=== PATIENT | male | born 1955 | race Caucasian/White ===

== ENCOUNTER 2022-10-20 01:28 | Inpatient (IN) | payer OTHER ==
[~2022-10-20] VITALS: Ht 172.7 cm; Wt 81.6 kg
[2022-10-20] VITALS (21 sets, daily range): BP systolic 68–132; BP diastolic 49–80; TEMP 97–99; O2SAT 96–100
--- NOTE | 2022-10-20 02:00 | NUR ---
[id number] FROM [facility] C/O ABD PAIN, HYPOTENSIVE, AND BLOOD IN STOOL.
--- NOTE | 2022-10-20 02:10 | NUR ---
RAC #20G S/L BLOOD COLLECTED AND SENT TO LAB
--- NOTE | 2022-10-20 02:18 | NUR ---
DR ELIS RATLIFF AT PT'S BEDSIDE FOR RECTAL EXAM
[2022-10-20] MEDS ORDERED: IV NS 0.9% 1,000 ML BAG IV ONE (02:30)
[2022-10-20] MEDS ORDERED: PANTOPRAZOLE 80 MG in IV NS 0.9% 100 ML IV ONE (02:30)
[2022-10-20] MEDS ORDERED: PANTOPRAZOLE 40 MG VIAL ONE (02:35)
[2022-10-20 03:02] LABS: BASOPHILS # (AUTO) 0.1 K/uL (0.0-0.2); BASOPHILS % (AUTO) 0.8 % (0.0-2.0); HEMATOCRIT 25 % (39-51); HEMOGLOBIN 8.3 g/dL (13.5-17.5); LYMPHOCYTES # (AUTO) 3.2 K/uL (0.8-4.8); LYMPHOCYTES % (AUTO) 20.1 % (20.0-44.0); MEAN CORPUSCULAR HGB CONC 33 g/dl (31.0-36.0); MEAN CORPUSCULAR VOLUME 93 fL (80-96); MONOCYTES # (AUTO) 1.1 K/uL (0.1-1.30); MONOCYTES % (AUTO) 7.2 % (2.0-12.0); NEUTROPHILS # (AUTO) 10.9 K/uL (1.8-8.9); NEUTROPHILS % (AUTO) 68.9 % (43.0-81.0); PLATELET COUNT (AUTO) 476 K/uL (150-450); RED BLOOD CELL COUNT(AUTO) 2.74 MIL/uL (4.5-6.0); WHITE BLOOD COUNT (AUTO) 15.8 K/uL (4.3-11.0)
[2022-10-20] MEDS ORDERED: IV NS 0.9% 250 ML IV ONE (03:16)
[2022-10-20] MEDS ORDERED: CT SWABBABLE VALVE TRANS SET 1 EA INFUS.SET MC ONE (03:16)
[2022-10-20] MEDS ORDERED: IOHEXOL-350 100 ML VIAL IV ONE (03:16)
--- NOTE | 2022-10-20 03:21 | NUR ---
TRAVELER CHANGER AT BEDSIDEM DRAWING BLOOD
[2022-10-20 03:25] LABS: CALCIUM, SERUM 9.5 mg/dL (8.5-10.1); CARBON DIOXIDE 27 mmol/L (21-32); CHLORIDE 99 mmol/L (98-107); CREATININE 1.2 mg/dL (0.6-1.3); GLUCOSE 216 mg/dL (74-106); POTASSIUM 4.6 mmol/L (3.5-5.1); SODIUM SERUM 135 mmol/L (136-145); UREA NITROGEN, BLOOD 28 mg/dL (7-18)
[2022-10-20 03:38] LABS: ALANINE AMINOTRANSFERASE 32 U/L (12-78); ALBUMIN 2.6 g/dL (3.4-5.0); ALKALINE PHOSPHATASE 80 U/L (46-116); ASPARTATE AMINOTRANSFERASE 30 U/L (15-37); BILIRUBIN,DIRECT 0.1 mg/dL (0.0-0.2); BILIRUBIN,TOTAL 0.4 mg/dL (0.2-1.0); LIPASE 235 U/L (73-393); TOTAL PROTEIN, SERUM 7.6 g/dL (6.4-8.2)
--- NOTE | 2022-10-20 03:47 | NUR ---
PT TAKEN TO CT VIA DANIEL
--- NOTE | 2022-10-20 03:57 | NUR ---
REQUESTED INFORMATION ABOUT MEDICATION LAST TAKEN. CALLED [facility] NO ANSWER.
--- NOTE | 2022-10-20 04:02 | NUR ---
PT RETURNED TO ER BED [address]
--- NOTE | 2022-10-20 04:06 | NUR ---
COVID SWAB TAKEN AND SENT TO LAB
[2022-10-20] MEDS ORDERED: ZINC220T3 PO (04:20)
[2022-10-20] MEDS ORDERED: L. A1TAB10 PO (04:20)
[2022-10-20] MEDS ORDERED: LINA5TAB PO (04:20)
[2022-10-20] MEDS ORDERED: ASPI-1169 PO (04:20)
[2022-10-20] MEDS ORDERED: ASCO500T21 PO (04:20)
[2022-10-20] MEDS ORDERED: CYAN-51 PO (04:20)
[2022-10-20] MEDS ORDERED: OMEG1CAP40 PO (04:20)
[2022-10-20] MEDS ORDERED: SENN-261 PO (04:20)
[2022-10-20] MEDS ORDERED: MULT-594 PO (04:20)
[2022-10-20] MEDS ORDERED: DOCU100C36 PO (04:20)
[2022-10-20] MEDS ORDERED: ATOR20TA PO (04:20)
[2022-10-20] MEDS ORDERED: APIX5TAB PO (04:20)
[2022-10-20] MEDS ORDERED: CEFEPIME 1 GM in IV D5W 50 ML IV ONE (05:30)
[2022-10-20] MEDS ORDERED: VANCOMYCIN 1 GM in IV D5W 250 ML IV ONE (05:30)
[2022-10-20] MEDS ORDERED: CEFEPIME 1 GM VIAL ONE (05:32)
--- NOTE | 2022-10-20 05:41 | NUR ---
DR. GILL PAGED, LESS A MESSAGE. AWAITING CALLBACK.
--- NOTE | 2022-10-20 05:57 | NUR ---
TELE 117-1
[2022-10-20] MEDS ORDERED: MORPHINE SULFATE INJ 2 MG/ML DISP.SYRIN IV PRN (06:00)
[2022-10-20] MEDS ORDERED: ACETAMINOPHEN 325 MG TABLET PO PRN (06:00)
[2022-10-20] MEDS ORDERED: IV NS 0.9% 1,000 ML IV SCH (06:00)
[2022-10-20] MEDS ORDERED: ONDANSETRON HCL/PF 4 MG/2 ML VIAL IVP PRN (06:00)
[2022-10-20] MEDS ORDERED: VANCOMYCIN 1 GM /D5W 250 ML PB IV ONE (06:07)
[2022-10-20 06:35] LABS: HEMOGLOBIN 7.4 g/dL (13.5-17.5)
--- NOTE | 2022-10-20 06:36 | NUR ---
CALLED [facility] FOR REPORT. WAS TOLD NO NURSES AVAILABLE, CALL BACK AFTER SHIFT CHANGE.
--- NOTE | 2022-10-20 06:40 | NUR ---
DR GILLIS ON PHONECALL WITH DR KAMLESH MONTEZ
--- NOTE | 2022-10-20 06:51 | NUR ---
REPORT GIVEN TO DARREN QUINTANA, CHARGE NURSE ON FIRST FLOOR
[2022-10-20] MEDS ORDERED: PIPERACILLIN /TAZOBACTAM 3.375 G in IV D5W 100 ML IV SCH (07:00)
[2022-10-20] MEDS ORDERED: PEG 3350/NA SULF,BICARB,CL/KCL 4,000 ML BOTTLE PO ONE ×2 (07:00→17:00)
--- NOTE | 2022-10-20 07:05 | NUR ---
PATIENT NOTED WITH BURGUNDY-COLORED, PASTY STOOL. SEMAJ CARE PROVIDED. NO OPEN AREAS NOTED IN SACRAL-COCCYX AREA OR BUTTOCKS. S/P SURGICAL LESIONS TO RIGHT UPPER LEG COVERED WITH DRY DRESSING.
--- NOTE | 2022-10-20 07:05 | NUR ---
PATIENT ADMITTED FROM ER WITH DX:GI BLEED. TO ROOM 117/1 [facility]. PATIENT ACCOMPANIED BY ER STAFF WITH IV ON RIGHT AC RUNNING ABX ORDERED. IV SITE PATENT NO S/S OF COMPLICATIONS. IV ON LEFT AC SALINE LOCKED G20, PATENT. PATIENT IS PALE, SKIN IS WARM AND DRY. UNLABORED BREATHING AT ROOM AIR SATING 100%. NOTED WITH BLOOD BLOOD CLOTS COMING FROM RECTUM. NPO. CLEAN WOUND DRESSINGS ON BLE. V/S BP 93/68, HR 100, R 18 T97.0 100% 02 SATURATION AT ROOM AIR. KEPT CLEAN AND COMFORTABLE. BILATERAL HALF SIDE RAILS UP X2. CALL LIGHT IN REACH.
--- NOTE | 2022-10-20 07:10 | NUR ---
PT TRANSPORTED TO [facility] VIA ACLS PROTOCOL
--- NOTE | 2022-10-20 07:58 | NUR ---
PATIENT IS AWAKE, ALERT X3. PALE UNLABORED BREATHING AT ROOM AIR. PALE IN COLOR. BASIN CLEANER INFORMED. C/O FEELING PASSING OUT. V/S 68/49 HR 90 T 97.7. R 20 100% 02 SAT AT ROOM AIR.
--- NOTE | 2022-10-20 07:59 | NUR ---
RAPID RESPONSE CALLED.
--- NOTE | 2022-10-20 08:00 | NUR ---
per dr. benítez not aware of pt. need to call [facility] for orders.
--- NOTE | 2022-10-20 08:00 | NUR ---
lary hinkle notified regarding pt. bloody stool and decrease bp,new orders given AND CARRIED OUT,aware pt. is regal he will update dr. benítez.
--- NOTE | 2022-10-20 08:06 | NUR ---
dr. navas also notified regarding pt. bleeding and being transferred to icu r/t unstable vs.
--- NOTE | 2022-10-20 08:15 | NUR ---
RECEIVED PATIENT IN ICU. ON ROOM AIR WITH SATURATION AT 100%. SINUS RHYTHM ON MONITOR AT THIS TIME. SYSTOLIC BP GREATER THAN 90. 1 LITER OF NORMAL SALINE BOLUSING, I LITER PENDING. CLEANED ONE TIME, COPIOUS RED STOOL NOTED. IV ACCESS ON RIGHT ANTECUBITAL 20 GAUGE AND LEFT ANTECUBITAL 20 GAUGE, BOTH ACCESS' FLUSHING WITHOUT RESISTANCE. NPO AT THIS TIME DUE TO GI BLEED. WOUNDS PHOTOGRAPHED. SAFETY MEASURES IMPLEMENTED, WILL CONTINUE PLAN OF CARE AND ANTICIPATE NEEDS.
[2022-10-20] MEDS ORDERED: IV NS 0.9% 1,000 ML IV ONE (08:30)
--- NOTE | 2022-10-20 08:45 | NUR ---
OWENS CATHETER INSERTED. YELLOW CLEAR OUTPUT NOTED
[2022-10-20] MEDS ORDERED: DEXTROSE 50%-WATER 50 ML DISP.SYRIN IV PRN (09:00)
[2022-10-20] MEDS: ASCORBIC ACID 500 MG TABLET PO SCH (09:00)
--- NOTE | 2022-10-20 09:16 | NUR ---
RECIEVED VERBAL ORDER FROM DOCTOR JUVENTINO: ORDER LEVOPHED FOR HYPOTENSION ORDER INSERTION OF PICC LINE. NURSING PETROLOGY TEACHER NOTIFIED. ORDERS PLACED, WILL CARRY OUT.
[2022-10-20] MEDS ORDERED: NOREPINEPHRINE 8 MG in IV NS 0.9% 242 ML IV PRN (09:30)
[2022-10-20] MEDS: PANTOPRAZOLE 40 MG VIAL IV SCH ×2 (10:24→17:17)
[2022-10-20] MEDS: IV NS 0.9% 250 ML IV PRN (12:58)
[2022-10-20] MEDS: PIPERACILLIN /TAZOBACTAM 3.375 G in IV D5W 100 ML IV SCH ×2 (12:58→20:31)
[2022-10-20] MEDS: BLOOD SUGAR DIAGNOSTIC 1 EACH STRIP IN SCH ×2 (12:58→17:17)
[2022-10-20 14:10] LABS: HEMOGLOBIN 5.6 g/dL (13.5-17.5)
--- NOTE | 2022-10-20 14:25 | NUR ---
BLOOD TRANSFUSION STARTED. INTIATED AT RATE OF 75 MLS/HR. WILL INCREASE RATE OF INFUSION PATIENT TOLERATES. PRE TRANS FUSION VITALS LOGGED IN TRANSFUSION MENU UNDER 1415 TIME.
--- NOTE | 2022-10-20 14:40 | NUR ---
PATIENT TOLERATING TRANSFUSION WELL. INCREASED RATE TO 130 MLS/HR. WILL CONTINUE TO ASSESS AND MAKE ADJUSTMENTS NECESSARY.
[2022-10-20] MEDS: IV NS 0.9% 1,000 ML IV PRN ×2 (15:13→23:49)
--- NOTE | 2022-10-20 17:30 | NUR ---
UNABLE TO ACCESS TRANSFUSION MENU. BLOOD TRANSFUSION CONCLUDED. POST TRANSFUSION VITALS ARE FOLLOWS TEMP-98.7 DEGREES FAHRENHEIT PULSE 78 RESPIRATORY RATE 18 SPO2 98% BP- 113/71 PAIN-0/10. INFUSED INTO RIGHT UPPER ARM PICC LINE. DISCONTINUED Y-TUBING, LINE FLUSHED. WILL CONTINUE PLAN OF CARE AND ANTICIPATE NEEDS.
--- NOTE | 2022-10-20 19:30 | NUR ---
PATIENT HAD LARGE BLOODY BOWEL MOVEMENT. CLEANED WITH NIGHTSHIFT RN. WILL ORDER STAT HEMOGRAM TO ASSESS BLOOD LOSS. CARE ENDORSED TO ALE FOR CONTINUATION OF CARE.
--- NOTE | 2022-10-20 21:00 | NUR ---
Received latest Hgb 7.5 (from 5.6),Hct 23 (from 17) post 1u PRBC transfusion in AM. No blood from stool noted at this time, stool liquid, light brown in color. Notified COMMUNICATION CONSULTANT Gee BRADFORD at this time.
[2022-10-20 21:37] LABS: HEMATOCRIT 23 % (39-51); HEMOGLOBIN 7.5 g/dL (13.5-17.5); MEAN CORPUSCULAR HGB CONC 33 g/dl (31.0-36.0); MEAN CORPUSCULAR VOLUME 88 fL (80-96); PLATELET COUNT (AUTO) 350 K/uL (150-450); RED BLOOD CELL COUNT(AUTO) 2.58 MIL/uL (4.5-6.0); WHITE BLOOD COUNT (AUTO) 13.4 K/uL (4.3-11.0)
[2022-10-20] MEDS: ATORVASTATIN 10 MG TABLET PO SCH (22:00)
[2022-10-21] VITALS (36 sets, daily range): BP systolic 84–133; BP diastolic 46–95; TEMP 97.4–99.3; O2SAT 95–100
--- NOTE | 2022-10-21 | NUR ---
Noted pt w/ severe bleeding from rectum, bright red in color, large clots noted. Pt is awake, altered mentation, confused, verbally responsive, however lethargic and pale. Notified FAMILY SERVICES WORKER Gee Cuellar w/ order for stat H/H. VS 84/60, HR 111, RR 20, O2 sat- 98%. Addendum: 10/21/22 at 0303 by ELSI HASKINS RN Approx. 500ml blood loss, bright red in color, with large clots.
--- NOTE | 2022-10-21 00:06 | NUR ---
Stat H/H ordered and communicated.
--- NOTE | 2022-10-21 00:20 | NUR ---
Received H/H result. Hgb 5.9, Hct, 18. Notified HEALTH AID Gee Cuellar w/ order to transfuse 2units PRBC stat.
--- NOTE | 2022-10-21 00:30 | NUR ---
Blood bank aware of stat 2u PRBC order. Awaiting for blood to be ready.
[2022-10-21] MEDS: INSULIN REGULAR, HUMAN 100 UNIT/ML 3 ML VIAL SQ PRN ×3 (00:33→23:52)
[2022-10-21 00:35] LABS: HEMOGLOBIN 5.9 g/dL (13.5-17.5)
[2022-10-21] MEDS: BLOOD SUGAR DIAGNOSTIC 1 EACH STRIP IN SCH ×5 (00:40→23:51)
--- NOTE | 2022-10-21 01:16 | NUR ---
ICU/RN NOTE Blood transfusion 1PRBC started at this time. Pt awake, verbally responsive, noted with altered mental status, confusion. Will cont to monitor pt. VS BP- 88/57, HR 111, RR 22, O2 SAT 99%, T- 98.1. Addendum: 10/21/22 at 0151 by ELSI HASKINS RN SEE NOTE ABOVE
--- NOTE | 2022-10-21 01:17 | NUR ---
Blood transfusion 1u PRBC started at this time. Pt awake, verbally responsive, noted with altered mental status, confusion. Will cont to monitor pt. VS BP- 88/57, HR 111, RR 22, O2 SAT 99%, T- 98.1.
--- NOTE | 2022-10-21 01:36 | NUR ---
1u PRBC transfusing, no transfusion reaction noted. Pt remains awake, verbally responsive, lethargic. VS- BP 94/46, HR- 96, RR- 13, O2 sat- 98%, T- 98.3
--- NOTE | 2022-10-21 02:16 | NUR ---
1st 1unit PRBC transfused. No transfusion reaction noted. Afebile. Pt noted w/ improved mental status, alert, and verbally responsive. Still noted w/ active bleeding from rectum. will transfuse second unit of PRBC. VS: BP- 103/61, HR- 91, RR-20, O2 SAT- 98%, T- 98.7
--- NOTE | 2022-10-21 02:35 | NUR ---
2nd unit PRBC started at this time. BP- 95/59, HR- 86, RR- 19, O2 SAT-99%, T- 98.3 orally
--- NOTE | 2022-10-21 02:50 | NUR ---
PRBC currently transfusing, no transfusion reaction noted. Pt remains awake, verbally responsive, lethargic. VS: BP- 101/66, HR-86, RR- 19, O2 SAT- 99%, T-97.8
[2022-10-21] MEDS: PIPERACILLIN /TAZOBACTAM 3.375 G in IV D5W 100 ML IV SCH ×3 (04:08→21:28)
--- NOTE | 2022-10-21 04:15 | NUR ---
2nd unit PRBC transfusion completed. No transfusion reaction noted. Pt back to baseline mental status, alert, awake, oriented x3. Denies pain or discomfort at this time. Afebrile. VS: BP- 104/64, HR- 79, RR- 18, O2 SAT- 100%, T- 98.8
[2022-10-21 05:27] LABS: BASOPHILS # (AUTO) 0.1 K/uL (0.0-0.2); BASOPHILS % (AUTO) 0.5 % (0.0-2.0); EOSINOPHILS % (AUTO) 0.8 % (0.0-6.0); HEMATOCRIT 23 % (39-51); HEMOGLOBIN 7.7 g/dL (13.5-17.5); LYMPHOCYTES # (AUTO) 1.7 K/uL (0.8-4.8); LYMPHOCYTES % (AUTO) 13.3 % (20.0-44.0); MEAN CORPUSCULAR HGB CONC 34 g/dl (31.0-36.0); MEAN CORPUSCULAR VOLUME 88 fL (80-96); MONOCYTES # (AUTO) 0.8 K/uL (0.1-1.30); MONOCYTES % (AUTO) 6.1 % (2.0-12.0); NEUTROPHILS # (AUTO) 10.1 K/uL (1.8-8.9); NEUTROPHILS % (AUTO) 79.3 % (43.0-81.0); PLATELET COUNT (AUTO) 218 K/uL (150-450); RED BLOOD CELL COUNT(AUTO) 2.58 MIL/uL (4.5-6.0); WHITE BLOOD COUNT (AUTO) 12.8 K/uL (4.3-11.0)
[2022-10-21 05:57] LABS: ALBUMIN 1.8 g/dL (3.4-5.0); BILIRUBIN,TOTAL 0.8 mg/dL (0.2-1.0); CALCIUM, SERUM 7.5 mg/dL (8.5-10.1); MAGNESIUM 1.8 mg/dL (1.8-2.4); POTASSIUM 4.6 mmol/L (3.5-5.1); TOTAL PROTEIN, SERUM 4.9 g/dL (6.4-8.2)
--- NOTE | 2022-10-21 07:02 | NUR ---
WOUND CARE CONSULT: PT PRESENTS WITH SACRAL SCARRING AND INCONTINENCE ASSOCIATED SKIN IRRITATION TO PERIANAL AREA WELL LOWER EXTREMITY WOUNDS AND CLOSED INCISIONS TO RT THIGH AND LOWER LEG, ALL PRESENT ON ADMISSION. DR FRAGOSO TO BE CALLED THIS AM FOR DPM CONSULT. RECOMMEND VASCULAR SURGERY FOLLOW UP WELL. DISCUSSED SKIN PROTECTION WITH NURSING STAFF. OWENS CATHETER NOTED. MD IN AGREEMENT WITH PLAN OF CARE.
--- NOTE | 2022-10-21 07:30 | NUR ---
Report given to AM shift for continuity of care. Pt in stable condition.
--- NOTE | 2022-10-21 07:30 | NUR ---
PRIZE JACKER NOTE Patient is resting in bed without active complaint. residential monitor showed SR HR 78/min. SpO2 100% with 2L oxygen via NC. No respiratory distress noted. GCS [id number], bilateral pupils 3mm PEARLA. BP 107/53mmHg. Zaabla is in-situ, collecting yellowish and clear urine. Patient has been fasted since 10/20/22. All the surgery consent is checked and surgical sites are checked and marked. Await procedures now.
[2022-10-21] MEDS: ASCORBIC ACID 500 MG TABLET PO SCH (08:36)
[2022-10-21] MEDS: Z GUARD REMEDY 4 OZ OINT TP SCH (08:36)
[2022-10-21] MEDS: PANTOPRAZOLE 40 MG VIAL IV SCH ×2 (08:36→17:21)
[2022-10-21] MEDS ORDERED: IOHEXOL 50 ML IV ONE (09:26)
[2022-10-21] MEDS ORDERED: LIDOCAINE 1% INJ 50 ML MDV IJ ONE (09:27)
--- NOTE | 2022-10-21 11:14 | NUR ---
BUSINESS TEAM LEADER NOTE Patient returned to the unit after left groin IVC filter placement is done under MAC. Patient is alert and awake, without active complaints for now. security monitor showed SR HR 70s/min. BP 104/63mmHg, SpO2 100% RA. Keep patient fasting for EGD and CLN at 13:00.
[2022-10-21] MEDS ORDERED: ANESTHESIA TRAY IN PYXIS 1 EA TRAY MC ONE (12:30)
[2022-10-21] MEDS: IV NS 0.9% 1,000 ML IV PRN (12:54)
[2022-10-21] MEDS: IV NS 0.9% 250 ML IV PRN (12:59)
[2022-10-21] MEDS ORDERED: FENTANYL PF 100MCG/2ML AMPUL ONE (14:13)
[2022-10-21 14:29] LABS: HEMOGLOBIN 7.4 g/dL (13.5-17.5)
--- NOTE | 2022-10-21 14:44 | NUR ---
TELEPHONE CLERK TELEGRAPH OFFICE NOTE Patient complained testicular pain after left IVC placement. Noted that the scrotum appeared red, very tender upon touch. Did not notice any irregularity over the area and enlargement. Informed. DAVID Echeverria, who ordered US scrotum. Await investigation.
[2022-10-21] MEDS ORDERED: PROTEIN LIQUID PO (16:14)
[2022-10-21] MEDS ORDERED: NA P133E RC (16:14)
[2022-10-21] MEDS ORDERED: BISA10SU11 RC (16:14)
[2022-10-21] MEDS ORDERED: MAGN400O6 PO (16:14)
[2022-10-21] MEDS ORDERED: DERMAFUNGAL TP (16:14)
[2022-10-21] MEDS ORDERED: HYDR-4303 PO (16:14)
[2022-10-21] MEDS ORDERED: POVI3780 TP (16:14)
[2022-10-21] MEDS ORDERED: TIZA-180 PO (16:14)
[2022-10-21] MEDS ORDERED: ACET-868 PO ×2 (16:14)
[2022-10-21] MEDS ORDERED: NORM210S TP (16:14)
[2022-10-21] MEDS: ANCEF 1 GM/50 ML D5W IV SCH ×2 (17:23)
--- NOTE | 2022-10-21 20:40 | NUR ---
HAY BUCKLER NOTES: RECEIVED REPORT FROM RECOVERY NURSE MAC URBAN. PT IS AWAKE, ALERT/ORIENTED X4 AND VERBALLY RESPONSIVE. O2 AT 2L/MIN VIA N/C AND PT TOLERATED WELL. O2 SAT 100%. IV ACCESS ON JORGE PICC AND RAC#20G INTACT AND PATENT. NO S/S OF INFILTRATIONS. DR. PHILLIPS- CLEAR LIQUID DIET. NOTED AND CARRIED OUT. GAVE PT ICE AND PT WAS ABLE TO SWALLOW. NO C/O NAUSEA/VOMITING. NO C/O PAIN OR DISCOMFORT. PT HAD EGD AND COLOSCOPY. FINDING WERE GASTRITIS, RECTAL ULCER AND VISIBLE VESSEL WITH CLIP. NOTED SCANT AMOUNT OF BLEEDING AROUND SACRUM AREA. OWENS CATHETER IN PLACE. DRAINING BY GRAVITY. NO HEMATURIA NOTED. WILL CONTINUE TO MONITOR FOR ANY CHANGES. .
[2022-10-21] MEDS: MUPIROCIN OINT 2% 22 GM TUBE NS SCH (21:29)
[2022-10-21 22:12] LABS: HEMOGLOBIN 6.9 g/dL (13.5-17.5)
[2022-10-21] MEDS: ATORVASTATIN 10 MG TABLET PO SCH (22:14)
--- NOTE | 2022-10-21 22:19 | NUR ---
RN NOTES: RECEIVED CRITICAL LAB RESULT. PT'S HGB/HCT IS 6.9/21. NOTIFIED DR. VILLARREAL. ORDER- 1 UNIT OF PRBC. NOTED AND CARRIED OUT.
--- NOTE | 2022-10-21 23:52 | NUR ---
RN NOTES: BLOOD SUGAR 126. NO COVERAGE NEEDED. NO S/S OF HYPER/HYPOGLYCEMIA. WILL CONTINUE TO MONITOR
[2022-10-22] VITALS (22 sets, daily range): BP systolic 92–119; BP diastolic 52–82; TEMP 97.3–99.1; O2SAT 98–100
--- NOTE | 2022-10-22 00:23 | NUR ---
RN NOTES: 1 UNIT BLOOD TRANSFUSION STARTED. V/S STABLE. PT AFEBRILE. WILL CONTINUE TO MONITOR
--- NOTE | 2022-10-22 00:30 | NUR ---
RN NOTES: AFTER 15 MIN OF BLOOD TRANSFUSION. PT STILL AFEBRILE. V/S STABLE. NO S/S OF ADVERSE REACTIONS. WILL CONTINUE TO MONITOR
[2022-10-22] MEDS: ANCEF 1 GM/50 ML D5W IV SCH ×2 (02:17)
--- NOTE | 2022-10-22 03:20 | NUR ---
RN NOTES: 1 UNIT OF BLOOD TRANSFUSION COMPLETED. V/S STABLE. PT STILL AFEBRILE. NO S/S OF ADVERSE REACTIONS NOTED. PT TOLERATED WELL. WILL CONTINUE TO MONITOR
[2022-10-22 04:39] LABS: HEMOGLOBIN 7.2 g/dL (13.5-17.5)
[2022-10-22] MEDS: PIPERACILLIN /TAZOBACTAM 3.375 G in IV D5W 100 ML IV SCH ×3 (04:50→21:34)
[2022-10-22] MEDS: BLOOD SUGAR DIAGNOSTIC 1 EACH STRIP IN SCH ×3 (05:19→18:08)
[2022-10-22] MEDS: INSULIN REGULAR, HUMAN 100 UNIT/ML 3 ML VIAL SQ PRN ×3 (05:20→18:19)
--- NOTE | 2022-10-22 05:20 | NUR ---
RN NOTES: BLOOD SUGAR 109. NO COVERAGE NEEDED. NO S/S OF HYPER/HYPOGLYCEMIA. WILL CONTINUE TO MONITOR
--- NOTE | 2022-10-22 05:56 | NUR ---
INFORMATION SENT:FACESHEET,24 HRS REPORT,DC PLANNING,PROGRESS NOTES-10/21,IMAGING,CONSULTATION,UR-10/21 INSURANCE NAME:VEENA/ /AUTH# [id number] FAX NO:[phone] PEDRO NAME:RENAE FAX NO:[phone] NO OF PAGES:32 FAX SENT BY:RONEN
[2022-10-22] MEDS: IV NS 0.9% 1,000 ML IV PRN (06:03)
--- NOTE | 2022-10-22 06:35 | NUR ---
SKATE BOARDER CLOSING NOTES: PT IS SLEEPING IN BED AT THIS MOMENT. BUT EASILY AROUSABLE. AWAKE, ALERT/ORIENTED X4 AND VERBALLY RESPONSIVE. O2 AT 2L/MIN VIA N/C AND PT TOLERATED WELL. O2 SAT 100%. IV ACCESS ON JORGE PICC INTACT AND PATENT. NO S/S OF INFILTRATIONS. NO C/O PAIN OR DISCOMFORT. NO ACUTE DISTRESS. OWENS CATHETER IN PLACE. DRAINING BY GRAVITY. NO HEMATURIA NOTED. NOTED CLEAR/YELLOW URINE. ALL SAFETY MEASURES IN PLACE. BED IN LOWEST POSITION AND LOCKED. SIDE RAILS UP X3. PLACE CALL LIGHT WITH IN REACH. ALL DUE MEDS GIVEN ORDERED. WILL ENDORSE TO MORNING SHIFT NURSE.
--- NOTE | 2022-10-22 07:32 | NUR ---
DISTRICT HOME ECONOMICS AGENT NOTE Patient is resting in bed without active complaint. Facial expression is normal. test puller showed SR HR 70/min. BP WML without vasopressors use. SpO2 95% RA without respiratory distress noted. Zabala is in-situ, collecting clear and yellowish urine. Right PICC is in-situ, patent upon NS flush. For clear fluids today. Continue monitoring and care.
[2022-10-22] MEDS: PANTOPRAZOLE 40 MG VIAL IV SCH ×2 (08:31→18:08)
[2022-10-22] MEDS: MUPIROCIN OINT 2% 22 GM TUBE NS SCH ×2 (08:32→21:34)
[2022-10-22] MEDS: ASCORBIC ACID 500 MG TABLET PO SCH (08:32)
[2022-10-22] MEDS: Z GUARD REMEDY 4 OZ OINT TP SCH (08:33)
--- NOTE | 2022-10-22 11:30 | NUR ---
NUCLEAR PLANT INSTRUMENT TECHNICIAN NOTE Transferred patient to 3W bed 311-1. Handover is given to 3W RN Angela for continuity of care. Nil complaints from patient. Patient's sister is informed about the transfer.
--- NOTE | 2022-10-22 11:45 | NUR ---
MS ATTENUATOR NOTES RECEIVED PATIENT FROM ICU ON HIS BED, A/O X4. ABLE TO MAKE NEEDS KNOWN. ON ROOM AIR, BREATHING EVEN AND NON-LABORED. DENIES ANY PAIN AT THIS TIME. HAS RIGHT UPPER ARM PICC LINE WITH NS RUNNING @ 75 ML/HR. NO S/S OF INFILTRATION NOTED. PATIENT HOOK TO TELE MONITOR READING SR 65. ON CLEAR LIQUID DIET WITH MULTIPLE WOUNDS ON LEFT LATERAL CALF, RIGHT MEDIAL THIGH, BILATERAL HEEL, RIGHT MEDIAL THIGH, RIGHT BIG TOE, WITH DRY DRESSING AND INTACT. DENIES DISCOMFORT AT THIS TIME. VITAL SIGNS CHECKED BP-101/64 HR- 65, O2 SAT 99%. SAFETY PRECAUTIONS IN PLACE: BED LOCKED AND IN LOW POSITION, SIDE RAILS UP X2, CALL LIGHT WITHIN REACH. WILL CONTINUE PLAN OF CARE.
[2022-10-22 14:26] LABS: HEMOGLOBIN 8.2 g/dL (13.5-17.5)
[2022-10-22] MEDS: HYDROCODONE/APAP 5/325MG TABLET PO PRN ×2 (15:55→21:33)
--- NOTE | 2022-10-22 19:35 | NUR ---
MS RN CLOSING NOTES PATIENT RESTING IN BED, A/O X4. ABLE TO MAKE NEEDS KNOWN. ON ROOM AIR, BREATHING EVEN AND NON-LABORED. DENIES ANY PAIN AT THIS TIME. HAS RIGHT UPPER ARM PICC LINE WITH NS RUNNING @ 75 ML/HR. NO S/S OF INFILTRATION NOTED. PATIENT ON TELE MONITOR READING SR 64. ON CLEAR LIQUID DIET, TOLERATED. WITH MULTIPLE WOUNDS ON LEFT LATERAL CALF, RIGHT MEDIAL THIGH, BILATERAL HEEL, RIGHT MEDIAL THIGH, RIGHT BIG TOE, WITH DRY DRESSING AND INTACT. DENIES DISCOMFORT AT THIS TIME. PRN PAIN MEDS GIVEN 1555 AND EFFECTIVE. SAFETY PRECAUTIONS IN PLACE: BED LOCKED AND IN LOW POSITION, SIDE RAILS UP X2, CALL LIGHT WITHIN REACH. WILL CONTINUE PLAN OF CARE.
--- NOTE | 2022-10-22 19:35 | NUR ---
RN OPENING NOTE PATIENT IS ASLEEP IN BED. A/OX4. NO S/S OF DISTRESS, BREATHING WITHOUT DIFFICULTY ON ROOM AIR. JORGE PICC INTACT AND PATENT W/ NS 75ML/HR. TELE READS SR 62. SAFETY MEASURES IN PLACE: BED LOCKED AND AT LOWEST POSITION, RAILS UP X2, CALL MCKEON WITHIN REACH. WILL CONTINUE TO MONITOR PATIENT.
[2022-10-22] MEDS ORDERED: NITROFURANTOIN/MONOHYDRATE MACROCRYSTALS 100 MG CAPSULE PO SCH (21:00)
[2022-10-22] MEDS: ATORVASTATIN 10 MG TABLET PO SCH (21:34)
[2022-10-22 22:10] LABS: HEMOGLOBIN 8.5 g/dL (13.5-17.5)
[2022-10-23] VITALS: BP 111/54; TEMP 97.8; O2SAT 98
[2022-10-23] MEDS: INSULIN REGULAR, HUMAN 100 UNIT/ML 3 ML VIAL SQ PRN ×2 (00:11→05:06)
[2022-10-23] MEDS: BLOOD SUGAR DIAGNOSTIC 1 EACH STRIP IN SCH ×4 (00:11→18:37)
[2022-10-23] MEDS: IV NS 0.9% 1,000 ML IV PRN (00:57)
[2022-10-23 04:00] VITALS: BP 113/54; TEMP 97.6; O2SAT 98
[2022-10-23] MEDS: PIPERACILLIN /TAZOBACTAM 3.375 G in IV D5W 100 ML IV SCH ×3 (05:05→21:01)
[2022-10-23 05:52] LABS: BASOPHILS # (AUTO) 0.1 K/uL (0.0-0.2); BASOPHILS % (AUTO) 0.8 % (0.0-2.0); EOSINOPHILS % (AUTO) 4.2 % (0.0-6.0); HEMATOCRIT 23 % (39-51); HEMOGLOBIN 7.6 g/dL (13.5-17.5); LYMPHOCYTES # (AUTO) 2.2 K/uL (0.8-4.8); LYMPHOCYTES % (AUTO) 25.3 % (20.0-44.0); MEAN CORPUSCULAR HGB CONC 34 g/dl (31.0-36.0); MEAN CORPUSCULAR VOLUME 91 fL (80-96); MONOCYTES # (AUTO) 0.6 K/uL (0.1-1.30); MONOCYTES % (AUTO) 7.3 % (2.0-12.0); NEUTROPHILS # (AUTO) 5.3 K/uL (1.8-8.9); NEUTROPHILS % (AUTO) 62.4 % (43.0-81.0); PLATELET COUNT (AUTO) 206 K/uL (150-450); RED BLOOD CELL COUNT(AUTO) 2.48 MIL/uL (4.5-6.0); WHITE BLOOD COUNT (AUTO) 8.6 K/uL (4.3-11.0)
[2022-10-23 06:13] LABS: MAGNESIUM 1.9 mg/dL (1.8-2.4); PHOSPHORUS 2.6 mg/dL (2.5-4.9); POTASSIUM 3.6 mmol/L (3.5-5.1)
--- NOTE | 2022-10-23 06:43 | NUR ---
RN CLOSING NOTE PATIENT ASLEEP IN BED. A/OX4. NO S/S OF DISTRESS, BREATHING WITHOUT DIFFICULTY ON ROOM AIR. JORGE PICC LINE INTACT AND PATENT W/ NS 75ML/HR. TELE READS SR 63. SAFETY MEASURES IN PLACE: BED LOCKED AND AT LOWEST POSITION, RAILS UP X2, CALL MCKEON WITHIN REACH. WILL ENDORSE TO NEXT SHIFT FOR PHANI.
[2022-10-23 07:30] VITALS: BP 123/67; TEMP 98.4; O2SAT 99
[2022-10-23] MEDS: ASCORBIC ACID 500 MG TABLET PO SCH (08:46)
[2022-10-23] MEDS: MUPIROCIN OINT 2% 22 GM TUBE NS SCH ×2 (08:46→21:02)
[2022-10-23] MEDS: Z GUARD REMEDY 4 OZ OINT TP SCH (08:48)
[2022-10-23] MEDS: PANTOPRAZOLE 40 MG VIAL IV SCH ×2 (09:16→18:22)
[2022-10-23 11:30] VITALS: BP 133/76; TEMP 97.8; O2SAT 99
--- NOTE | 2022-10-23 14:12 | NUR ---
BG CHECK LATE CHECK, POC ISSUE. NOT READING ID BAND. CHANGED ID BAND. STILL NOT WORKING. OVERRIDE NEEDED.
[2022-10-23 16:00] VITALS: BP 136/57; TEMP 98.7; O2SAT 98
--- NOTE | 2022-10-23 19:30 | NUR ---
NURSING SUPPORT WORKER OPENING NOTE RECEIVED PT AWAKE IN BED. A/O X4 AND ABLE TO MAKE NEEDS KNOWN. PT STABLE ON ROOM AIR. NO SOB OR S/S OF RESPIRATORY DISTRESS. BREATHING EVEN AND UNLABORED. ON EXTERNAL LANGUAGE TEACHER READING SR 73 BPM. IV ACCESS JORGE PICC, INTACT AND PATENT, RUNNING NS @ 75 ML/HR. NO COMPLAINTS OF PAIN OR DISCOMFORT AT THIS TIME. SAFETY PRECAUTIONS IN PLACE. BED IN LOWEST LOCKED POSITION, HOB ELEVATED, SIDE RAILS UP X2, AND CALL LIGHT AND TABLE WITHIN REACH. ALL NEEDS MET AT THIS TIME.
[2022-10-23 20:00] VITALS: BP 125/66; TEMP 97.5; O2SAT 96
[2022-10-23] MEDS: ATORVASTATIN 10 MG TABLET PO SCH (21:01)
[2022-10-24] VITALS: BP 133/69; TEMP 98.2; O2SAT 96
--- NOTE | 2022-10-24 00:20 | NUR ---
RN NOTE PT REFUSED ACCU CHECK AT THIS TIME. PT STATED HE WANTED TO SLEEP. NO S/S OF HYPER/HYPOGLYCEMIA. ALL NEEDS MET AT THIS TIME.
[2022-10-24] MEDS: PIPERACILLIN /TAZOBACTAM 3.375 G in IV D5W 100 ML IV SCH ×3 (04:29→20:50)
--- NOTE | 2022-10-24 04:29 | NUR ---
RN NOTE PT REFUSING 0400 VITALS AT THIS TIME. PT STATED HE WANTED TO KEEP SLEEPING. CHARGE NURSE ALISE KIDD.
[2022-10-24] MEDS: BLOOD SUGAR DIAGNOSTIC 1 EACH STRIP IN SCH ×4 (06:28→17:00)
[2022-10-24] MEDS: INSULIN REGULAR, HUMAN 100 UNIT/ML 3 ML VIAL SQ PRN ×4 (06:29→21:43)
--- NOTE | 2022-10-24 06:30 | NUR ---
PUBLIC ADDRESS SYSTEM MECHANIC CLOSING NOTE PT AWAKE IN BED. A/O X4 AND ABLE TO MAKE NEEDS KNOWN. PT STABLE ON ROOM AIR. NO SOB OR S/S OF RESPIRATORY DISTRESS. BREATHING EVEN AND UNLABORED. ON EXTERNAL SUGAR CONTROLLER READING SR 75 BPM. IV ACCESS JORGE PICC, INTACT AND PATENT, RUNNING NS @ 75 ML/HR. NO COMPLAINTS OF PAIN OR DISCOMFORT AT THIS TIME. KEPT CLEAN AND DRY. WITH OWENS, DRAINED 1400 CC OF CLEAR YELLOW URINE. WOUND TREATMENT RENDERED. SAFETY PRECAUTIONS IN PLACE AT ALL TIMES. BED IN LOWEST LOCKED POSITION, HOB ELEVATED, SIDE RAILS UP X2, AND CALL LIGHT AND TABLE WITHIN REACH. ALL NEEDS MET AT THIS TIME AND WILL ENDORSE TO ONCOMING NURSE FOR PHANI.
[2022-10-24 07:22] LABS: BASOPHILS # (AUTO) 0.1 K/uL (0.0-0.2); BASOPHILS % (AUTO) 0.7 % (0.0-2.0); EOSINOPHILS % (AUTO) 3.6 % (0.0-6.0); HEMATOCRIT 25 % (39-51); HEMOGLOBIN 8.2 g/dL (13.5-17.5); LYMPHOCYTES # (AUTO) 1.8 K/uL (0.8-4.8); LYMPHOCYTES % (AUTO) 17.7 % (20.0-44.0); MEAN CORPUSCULAR HGB CONC 34 g/dl (31.0-36.0); MEAN CORPUSCULAR VOLUME 90 fL (80-96); MONOCYTES # (AUTO) 0.7 K/uL (0.1-1.30); MONOCYTES % (AUTO) 6.9 % (2.0-12.0); NEUTROPHILS # (AUTO) 7.3 K/uL (1.8-8.9); NEUTROPHILS % (AUTO) 71.1 % (43.0-81.0); PLATELET COUNT (AUTO) 255 K/uL (150-450); RED BLOOD CELL COUNT(AUTO) 2.72 MIL/uL (4.5-6.0); WHITE BLOOD COUNT (AUTO) 10.2 K/uL (4.3-11.0)
[2022-10-24 07:47] LABS: CALCIUM, SERUM 8.5 mg/dL (8.5-10.1); CREATININE 0.9 mg/dL (0.6-1.3); MAGNESIUM 1.8 mg/dL (1.8-2.4); PHOSPHORUS 2.8 mg/dL (2.5-4.9); POTASSIUM 3.6 mmol/L (3.5-5.1)
--- NOTE | 2022-10-24 08:01 | NUR ---
RN OPENING NOTE RECEIVED PATIENT IN BED AO x 4, ABLE TO RESPONDS ALL STIMULI. RESPIRATORY EVEN AND UNLABORED IN ROOM AIR. IN NO ACUTE RESPIRATORY DISTRESS OBSERVED. SKIN IS WARM TO TOUCH, KEEP CLEAN/DRY. KEPT ELEVATED HOB FOR ASPIRATION PRECAUTION/ENSURE AIRWAY, ALSO LOWEST BED POSITIONED. BED ALARM IS ON AT ALL TIMES FOR SAFETY. CALL LIGHT WITHIN REACH, WILL CONTINUE TO MONITOR.
[2022-10-24] MEDS: Z GUARD REMEDY 4 OZ OINT TP SCH (09:00)
[2022-10-24] MEDS: MUPIROCIN OINT 2% 22 GM TUBE NS SCH ×2 (09:46→21:36)
[2022-10-24] MEDS: ASCORBIC ACID 500 MG TABLET PO SCH (09:47)
[2022-10-24] MEDS: Z GUARD REMEDY 4 OZ OINT TP PRN (09:47)
[2022-10-24] MEDS: PANTOPRAZOLE 40 MG VIAL IV SCH ×2 (09:47→16:59)
--- NOTE | 2022-10-24 17:54 | NUR ---
RN CLOSING NOTE PATIENT RESTING IN BED. IN NO ACUTE DISTRESS OBSERVED. RESPIRATORY EVEN AND UNLABORED IN ROOM AIR. SKIN IS WARM TO TOUCH KEEP CLEAN/DRY, WOUND CARE PROVIDED ON FEET, THERE IS NO S/S OF COMPLICATION OBSERVED. KEPT ELEVATED HOB FOR ENSURE AIRWAY/ASPIRATION PRECAUTION, AND LOWEST BED POSITION. BED ALARM IS ON AT ALL THE TIME FOR SAFETY. CALL LIGHT WITHIN REACH, WILL ENDORSE CREDIT ANALYSIS MANAGER.
[2022-10-24 20:00] VITALS: BP 130/74; TEMP 98.7; O2SAT 97
[2022-10-24] MEDS: IV NS 0.9% 1,000 ML IV PRN (20:50)
[2022-10-24] MEDS: ATORVASTATIN 10 MG TABLET PO SCH (21:33)
--- NOTE | 2022-10-24 22:28 | NUR ---
MS/TELE/RN AT 1930, PATIENT WAS IN BED AWAKE, ALERT, ORIENTED, APPEARS COMFORTABLE, NO SIGNS OF DISTRESS NOTED, CALL LIGHT IN REACH. PRESENTLY, PATIENT IS SLEEPING, NO CHANGE IN CONDITION. WILL MONITOR.
[2022-10-25] VITALS: BP 133/67; TEMP 98; O2SAT 96
[2022-10-25] MEDS: BLOOD SUGAR DIAGNOSTIC 1 EACH STRIP IN SCH ×4 (00:18→17:13)
[2022-10-25] MEDS: PIPERACILLIN /TAZOBACTAM 3.375 G in IV D5W 100 ML IV SCH ×3 (04:57→21:27)
[2022-10-25 05:33] VITALS: BP 140/69; TEMP 98; O2SAT 97
[2022-10-25] MEDS: HYDROCODONE/APAP 5/325MG TABLET PO PRN (06:04)
--- NOTE | 2022-10-25 06:14 | NUR ---
MS/TELE/RN PATIENT IS AWAKE AT THIS TIME, C/O PAIN BOTH FEET 7/10 MEDICATED WITH NORCO 1 TABLET ORDERED, NO SIGNS OF DISTRESS NOTED, ALL NEEDS ATTENDED AT THIS TIME, WILL CONTINUE TO MONITOR.
[2022-10-25 06:48] LABS: BASOPHILS # (AUTO) 0.1 K/uL (0.0-0.2); BASOPHILS % (AUTO) 0.8 % (0.0-2.0); EOSINOPHILS % (AUTO) 4.1 % (0.0-6.0); HEMATOCRIT 24 % (39-51); LYMPHOCYTES # (AUTO) 1.7 K/uL (0.8-4.8); LYMPHOCYTES % (AUTO) 17.8 % (20.0-44.0); MEAN CORPUSCULAR HGB CONC 34 g/dl (31.0-36.0); MEAN CORPUSCULAR VOLUME 91 fL (80-96); MONOCYTES # (AUTO) 0.7 K/uL (0.1-1.30); NEUTROPHILS # (AUTO) 6.8 K/uL (1.8-8.9); NEUTROPHILS % (AUTO) 70.3 % (43.0-81.0); PLATELET COUNT (AUTO) 260 K/uL (150-450); RED BLOOD CELL COUNT(AUTO) 2.59 MIL/uL (4.5-6.0); WHITE BLOOD COUNT (AUTO) 9.7 K/uL (4.3-11.0)
[2022-10-25 07:27] LABS: CALCIUM, SERUM 8.2 mg/dL (8.5-10.1); CREATININE 0.8 mg/dL (0.6-1.3); MAGNESIUM 1.6 mg/dL (1.8-2.4); POTASSIUM 3.6 mmol/L (3.5-5.1)
--- NOTE | 2022-10-25 07:30 | NUR ---
TERRA COTTA ROOFER HELPER OPENING NOTE RECEIVED PATIENT AWAKE IN BED AO x 4, ABLE TO RESPONDS ALL STIMULI. RESPIRATORY EVEN AND UNLABORED IN ROOM AIR. IN NO ACUTE RESPIRATORY DISTRESS OBSERVED. ON TELE MONITOR AT SINUS RHYTHM 67. IV ACCESS ON RIGHT UPPER ARM PICC LINE RUNNING NS @75 ML/HR. SKIN IS WARM TO TOUCH, KEEP CLEAN/DRY. KEPT ELEVATED HOB FOR ASPIRATION PRECAUTION/ENSURE AIRWAY, ALSO LOWEST BED POSITIONED. SIDE RAILS UP X2. BED ALARM IS ON AT ALL TIMES FOR SAFETY. CALL LIGHT WITHIN REACH, WILL ADMINISTER ALL SCHEDULED MEDS ORDERED AND CONTINUE TO MONITOR PT.
[2022-10-25] MEDS: Magnesium 1GM/D5W 100ML PREMIX 100 ML IV SCH ×2 (07:50→09:56)
[2022-10-25 08:00] VITALS: BP 130/60; TEMP 98.8; O2SAT 97
[2022-10-25] MEDS: MUPIROCIN OINT 2% 22 GM TUBE NS SCH ×2 (08:03→21:28)
[2022-10-25] MEDS: PANTOPRAZOLE 40 MG VIAL IV SCH ×2 (08:03→17:12)
[2022-10-25] MEDS: Z GUARD REMEDY 4 OZ OINT TP PRN (08:05)
[2022-10-25] MEDS: ASCORBIC ACID 500 MG TABLET PO SCH (08:15)
[2022-10-25] MEDS: Z GUARD REMEDY 4 OZ OINT TP SCH (09:03)
[2022-10-25] MEDS ORDERED: POLYETHYLENE GLYCOL 3350 17 GM POWD.PACK PO PRN (11:00)
[2022-10-25] MEDS: INSULIN REGULAR, HUMAN 100 UNIT/ML 3 ML VIAL SQ PRN (17:34)
[2022-10-25] MEDS: IV NS 0.9% 1,000 ML IV PRN (18:08)
--- NOTE | 2022-10-25 18:44 | NUR ---
GEAR FINISHER CLOSING NOTE PATIENT RESTING IN BED AO x 4, ABLE TO RESPONDS ALL STIMULI. RESPIRATORY EVEN AND UNLABORED IN ROOM AIR. IN NO ACUTE RESPIRATORY DISTRESS OBSERVED. ON TELE MONITOR AT SINUS RHYTHM 75. IV ACCESS ON RIGHT UPPER ARM PICC LINE RUNNING NS @75 ML/HR. SKIN IS WARM TO TOUCH, KEEP CLEAN/DRY. KEPT ELEVATED HOB FOR ASPIRATION PRECAUTION/ENSURE AIRWAY, ALSO LOWEST BED POSITIONED. WOUND CARE DONE, ALL NEEDS ATTENDED. PT FOR D/C PLANNING. FALL SAFETY MEASURES IN PLACED. SIDE RAILS UP X2. BED ALARM IS ON AT ALL TIMES FOR SAFETY. CALL LIGHT WITHIN REACH, ALL SCHEDULED MEDS GIVEN ORDERED AND ENDORSE TO NEXT SHIFT.
--- NOTE | 2022-10-25 19:35 | NUR ---
track rider Opening Note Received patient in bed; awake, alert and oriented x 4. On room air; tolerating well. Breathing even and nonlabored. Not in any form of respiratory or cardiac distress. Denies any pain or discomfort. On telemetry monitoring with reading of sinus rhythm hr-71 bpm. With IV access on right upper arm midline; patent and intact infusing with NS 1L running @ 75 ml/hr; flushes well. With chaudhary catheter in place draining by gravity to yellow urine output. Able to make needs known. Safety precautions implemented: head of bed elevated, call light and table within reach, side rails up x 2, bed in lowest locked position. Will continue to monitor.
[2022-10-25 20:00] VITALS: BP 138/79; TEMP 98.7; O2SAT 98
[2022-10-25] MEDS: ATORVASTATIN 10 MG TABLET PO SCH (21:28)
[2022-10-26] VITALS: BP 149/71; TEMP 98.4; O2SAT 97
[2022-10-26] MEDS: BLOOD SUGAR DIAGNOSTIC 1 EACH STRIP IN SCH ×4 (00:05→17:45)
[2022-10-26] MEDS: INSULIN REGULAR, HUMAN 100 UNIT/ML 3 ML VIAL SQ PRN ×4 (00:06→17:45)
--- NOTE | 2022-10-26 00:06 | NUR ---
RN Note Blood sugar checked - 127 mg/dl. No insulin coverage given per sliding scale. Will continue to monitor for s/sx of hypoglycemia/hyperglycemia.
[2022-10-26] MEDS: PIPERACILLIN /TAZOBACTAM 3.375 G in IV D5W 100 ML IV SCH ×2 (04:47→13:05)
[2022-10-26 05:00] VITALS: BP 149/79; TEMP 98.4; O2SAT 97
--- NOTE | 2022-10-26 06:08 | NUR ---
RN Note Blood sugar checked - 123 mg/dl. No insulin coverage given per sliding scale. Will continue to monitor for s/sx of hypoglycemia/hyperglycemia.
[2022-10-26 06:36] LABS: CALCIUM, SERUM 8.6 mg/dL (8.5-10.1); CREATININE 0.9 mg/dL (0.6-1.3); MAGNESIUM 1.7 mg/dL (1.8-2.4); POTASSIUM 3.8 mmol/L (3.5-5.1)
--- NOTE | 2022-10-26 06:55 | NUR ---
heat seal operator Closing Note Patient in bed; awake, a/o x 4. Stable on room air. In no acute distress. Denies any pain or discomfort. On telemetry monitoring with reading of sinus rhythm hr-65 bpm. With IV access on right upper arm midline; patent and intact infusing with NS 1L running @ 75 ml/hr; flushes well. With chaudhary catheter in place draining by gravity to yellow urine output All needs met. All due meds given as ordered. Endorsed to RN Neto for continuity of care.
[2022-10-26 08:00] VITALS: BP 146/83; TEMP 98.4; O2SAT 97
--- NOTE | 2022-10-26 08:10 | NUR ---
SCHOOL HEALTH ASSISTANT OPENING NOTE (DAY SHIFT) RECEIVED PATIENT AWAKE IN BED AO x 4, ABLE TO RESPONDS ALL STIMULI. RESPIRATORY EVEN AND UNLABORED IN ROOM AIR. IN NO ACUTE RESPIRATORY DISTRESS OBSERVED. ON TELE MONITOR AT SINUS RHYTHM 76 BPM. IV ACCESS ON RIGHT UPPER ARM PICC LINE INFUSING NS @75 ML/HR. SKIN IS WARM TO TOUCH, CLEAN, AND DRY. KEPT ELEVATED HOB FOR ASPIRATION PRECAUTION/ENSURE AIRWAY, ALSO LOWEST BED POSITIONED. SIDE RAILS UP X 2. BED ALARM IS ON AT ALL TIMES FOR SAFETY. RIGHT TOE INCISION WELL APROXIMATED WITH INTACT MALORIE, CLEAN,DRY AND INTACT GAUZE DRESSING COVERING . RIGHT LOWER LEG PINTO HAS WELL APPROXIMATED INCISION WITH INTACT SUTURES COVERED WITH DRY, CLEAN, INTACT GUAZE STERILE DRESSING. COCCYX MID SACRUM STAGE i ABRADED REDDENED SKIN COVERED WITH FOAM DRESSING. CALL LIGHT WITHIN REACH, WILL CONTINUE TO CARE FOR PATIENT AND MONITOR PER HOSPITALIST'S POC.
[2022-10-26] MEDS: Z GUARD REMEDY 4 OZ OINT TP SCH (09:00)
[2022-10-26] MEDS: PANTOPRAZOLE 40 MG VIAL IV SCH ×2 (09:42→17:50)
[2022-10-26] MEDS: MUPIROCIN OINT 2% 22 GM TUBE NS SCH (09:42)
[2022-10-26] MEDS: Z GUARD REMEDY 4 OZ OINT TP PRN ×2 (09:43→11:23)
[2022-10-26] MEDS: HYDROCODONE/APAP 5/325MG TABLET PO PRN ×2 (09:43→17:50)
[2022-10-26] MEDS: ASCORBIC ACID 500 MG TABLET PO SCH (09:43)
[2022-10-26] MEDS ORDERED: MAGNESIUM OXIDE 400 MG TABLET PO ONE (11:00)
[2022-10-26 12:00] VITALS: BP 126/75; TEMP 97.9; O2SAT 98
[2022-10-26 16:00] VITALS: BP 122/73; TEMP 98.4; O2SAT 96
--- NOTE | 2022-10-26 18:51 | NUR ---
PATIENT ADVOCATECLIPPING MARKER TO SNF NOTE (DAY SHIFT) Patient tolerated the removal of the triple lumen PICC line from his right upper arm, fully intact, without any signs of complications of IV therapy. Patient demonstrated understanding of his home care /discharge instructions using the teach back method in his own words. Phone report was given to receiving admissions nurse, Tarah, of the SNF for room 57 B. Patient departed the [address] [place] [address] at 19:00 hours via gurney to ambulance bound for the [facility], Room 57 B.
== END 2022-10-26 18:51 | DRG 394 ==
LOC: ER 01:40 → TELE-TD 06:10 → ICU 08:09 → TELE 10-22 11:59
PROVIDERS: ADMIT Internal Medicine; ATTEND Nurse Practitioner Acute Care
PROC: 30233N1 Transfusion of Nonautologous Red Blood Cells into Peripheral Vein, Percutaneous Approach (ICD-10-PCS; principal; 2022-10-20)
PROC: 02HV33Z Insertion of Infusion Device into Superior Vena Cava, Percutaneous Approach (ICD-10-PCS; 2022-10-20)
PROC: B548ZZA Ultrasonography of Superior Vena Cava, Guidance (ICD-10-PCS; 2022-10-20)
PROC: 0DB68ZX Excision of Stomach, Via Natural or Artificial Opening Endoscopic, Diagnostic (ICD-10-PCS; 2022-10-21)
PROC: 0W3P8ZZ Control Bleeding in Gastrointestinal Tract, Via Natural or Artificial Opening Endoscopic (ICD-10-PCS; 2022-10-21)
PROC: 06H03DZ Insertion of Intraluminal Device into Inferior Vena Cava, Percutaneous Approach (ICD-10-PCS; 2022-10-21)
PROC: B549ZZA Ultrasonography of Inferior Vena Cava, Guidance (ICD-10-PCS; 2022-10-21)
DX: K62.6 Ulcer of anus and rectum (principal); D62 Acute posthemorrhagic anemia; I82.413 Acute embolism and thrombosis of femoral vein, bilateral; D64.9 Anemia, unspecified; E11.51 Type 2 diabetes mellitus with diabetic peripheral angiopathy without gangrene; E78.5 Hyperlipidemia, unspecified; E11.621 Type 2 diabetes mellitus with foot ulcer; Z89.411 Acquired absence of right great toe; N50.89 Other specified disorders of the male genital organs; K29.70 Gastritis, unspecified, without bleeding; E11.42 Type 2 diabetes mellitus with diabetic polyneuropathy; E11.622 Type 2 diabetes mellitus with other skin ulcer; L97.519 Non-pressure chronic ulcer of other part of right foot with unspecified severity; L97.529 Non-pressure chronic ulcer of other part of left foot with unspecified severity; I10 Essential (primary) hypertension; K57.30 Diverticulosis of large intestine without perforation or abscess without bleeding; N30.90 Cystitis, unspecified without hematuria; N40.0 Benign prostatic hyperplasia without lower urinary tract symptoms; Z79.01 Long term (current) use of anticoagulants; Z79.82 Long term (current) use of aspirin; Z79.84 Long term (current) use of oral hypoglycemic drugs; Z79.899 Other long term (current) drug therapy
CPT/HCPCS: 36415; 71045-TC; 74018; 76870-TC; 80048-TC; 80053-TC; 80076-TC; 82962-TC; 83605-TC; 83690-TC; 83735-TC; 84100-TC; 84484-TC; 85025-TC; 85027-TC; 85730-TC; 86850-TC; 87040-TC; 87081-TC; 88305-TC; 88313-TC; 88342; 93970-TC; 97110-TC; 97530-TC; A4223; A6253; A6403; C1769; C1880; C9113; C9803; G0378; J0690; J0692; J1644; J1815; J2270; J2543; J2704; J3010; J3370; J3475; J3490; J7030; J7050; J7060; P9016; Q9967